=== PATIENT | female | born 1995 | race Caucasian/White ===

== ENCOUNTER 2020-01-06 11:56 | Emergency (ER) | payer SELFPAY ==
[2020-01-06 12:23] LABS: Bilirubin Negative (Negative); Blood, Urine Trace (Negative); Clarity Clear (Clear); Glucose, Urine (Dipstick) Negative (Negative); Leukocyte Negative (Negative); Nitrite Negative (Negative); Protein, Urine (Dipstick) Negative (Neg-Trace); Urobilinogen 0.2 mg/dL (Less than 2)
[2020-01-06 12:25] LABS: Bacteria/HPF Rare-Few HPF (None Seen); RBC/HPF 0-3 HPF (0-3); Squamous Epithelial 0-3 HPF (0-3); WBC/HPF 0-3 HPF (0-3)
[2020-01-06 12:26] LABS: Pregnancy Test - Urine (BHCG) POSITIVE (Negative); Pregu Control Background? CLEAR/WHITE (CLR/WHITE); Pregu Control Bar Appear? YES (CONTROL BAR); Specific Gravity 1.025 (1.002-1.036)
--- NOTE | 2020-01-06 14:33 | ULT ---
LIMITED OB ULTRASOUND: (TRANSABDOMINAL AND TRANSVAGINAL PELVIC ULTRASOUND WITH NIELSEN SCALE AND COLOR FLOW AND SPECTRAL DOPPLE R IMAGING) Date: 01/06/2020 HISTORY: Abdominopelvic pain. No bleeding. FINDINGS: The uterus measures 9.9 x 4.3 x 4.5 cm without intrauterine gestational sac, uterine mass, or endomet rial fluid. The endometrium measures 17 mm in thickness. Numerous hypoechoic densities are seen withi n the endometrium. These have the appearance of small cysts. The right ovary measures 2.9 x 1.0 x 1.0 cm with demonstration of flow. The left ovary is not visual ized. No free fluid is seen. IMPRESSION: 1. No evidence of intrauterine gestation. 2. Thickened endometrium with multiple tiny cysts. POS: [facility]
[2020-01-06] MEDS ORDERED: Ondansetron PF 4 MG/2 ML Vial ONE (15:35)
[2020-01-06] MEDS ORDERED: Sodium Chloride 0.9% 1,000 ML ONE (15:35)
[2020-01-06] MEDS ORDERED: Morphine 4 MG/ML VIAL ONE (15:35)
[2020-01-06 16:01] LABS: #Basophils 0.1 thou/uL (0.0-0.2); #Eosinphils 0.1 thou/uL (0.0-0.7); #Lymphocytes 2.9 thou/uL (1.20-3.40); #Monocytes 0.6 thou/uL (0.11-0.59); #Neutrophils 5.6 thou/uL (1.40-6.50); %Basophils 1.2 % (0.0-1.0); %Eosinophils 1.4 % (0.0-10.0); %Lymphocytes 31.4 % (21.0-51.0); Hemoglobin 13.3 g/dL (12.0-16.0); Mean Corpuscular HGB CONC 31.7 g/dL (32.0-36.0); Mean Corpuscular Hemoglobin 31.1 pg (27.0-31.0); Mean Corpuscular Volume 97.8 fL (78.0-98.0); Mean Platelet Volume 8.2 fL (7.4-10.4); Platelet Count 246 thou/uL (130-400); RBC Distribution Width 12.6 % (11.5-14.5); Red Blood Cell (RBC) Count 4.28 mill/uL (4.20-5.40); White Blood Cell (WBC) Count 9.3 thou/uL (4.8-10.8)
[2020-01-06 16:06] LABS: ALT (SGPT) 16 U/L (8-55); BUN (Urea Nitrogen) 10 mg/dL (7.0-18.7); Calc. Creatinine Clearance 0 mL/min (70-130)
[2020-01-06 16:12] LABS: AST (SGOT) 17 U/L (5-34); Albumin 4.2 g/dL (3.5-5.0); Alkaline Phosphatase 51 U/L (40-110); Anion Gap 13 mmol/L (10-20); Bilirubin, Total 0.8 mg/dL (0.2-1.2); Calcium 8.8 mg/dL (7.8-10.44); Carbon Dioxide 24 mmol/L (22-29); Chloride 104 mmol/L (98-107); Estimated GFR-MDRD Greater than 90; Globulin 3.2 g/dL (2.4-3.5); Glucose 89 mg/dL (70-105); Potassium 3.4 mmol/L (3.5-5.1); Protein, Total 7.4 g/dL (6.0-8.3); Sodium 138 mmol/L (136-145)
[2020-01-06] MEDS ORDERED: Potassium Chloride 20 MEQ/100 ML PREMIX BAG ONE (16:34)
== END 2020-01-06 16:59 | disposition short-term general hospital (02) ==
LOC: MADERS 11:56
DX: O99.281 Endocrine, nutritional and metabolic diseases complicating pregnancy, first trimester (principal); E87.6 Hypokalemia; Z3A.01 Less than 8 weeks gestation of pregnancy
CPT/HCPCS: 36415; 76815; 80053; 81003; 81015; 81025; 84702; 85025; 86900; 86901; 96361; 96374; 96375; J2270; J2405; J3480; J7050